=== PATIENT | male | born 1990 | race Caucasian/White ===

== ENCOUNTER 2017-02-22 18:16 | Emergency (ER) | payer MEDICAID, SELFPAY | END 2017-02-22 18:58 | disposition home or self-care (01) | PROVIDERS: Emergency Provider Nurse Practitioner Family; Family Provider Physician Assistant; Visit Provider Nurse Practitioner Family | DX: S93.402A Sprain of unspecified ligament of left ankle, initial encounter (principal); X50.1XXA Overexertion from prolonged static or awkward postures, initial encounter; Y92.89 Other specified places as the place of occurrence of the external cause; F17.210 Nicotine dependence, cigarettes, uncomplicated; Y93.67 Activity, basketball | CPT/HCPCS: 73610; 99201 ==

== ENCOUNTER 2020-02-27 03:42 | Emergency (ER) | payer OTHER, MEDICAID, SELFPAY ==
[2020-02-27 03:44] VITALS: BP 135/81; PULSE 96; RESP 16; TEMP 36.5; O2SAT 100; BMI 23.6
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
--- NOTE | 2020-02-27 04:18 | PC.NURSE ---
pt back from RAD
[2020-02-27 05:00] VITALS: BP 129/83; PULSE 89; RESP 16; TEMP 36.6; O2SAT 97
== END 2020-02-27 05:04 | disposition home or self-care (01) ==
PROVIDERS: Emergency Provider Emergency Medicine
DX: S00.83XA Contusion of other part of head, initial encounter (principal); S01.311A Laceration without foreign body of right ear, initial encounter; Y04.0XXA Assault by unarmed brawl or fight, initial encounter; Y92.9 Unspecified place or not applicable; E03.9 Hypothyroidism, unspecified; Z23 Encounter for immunization
CPT/HCPCS: 70450; 70486; 72125; 90715; 99282

== ENCOUNTER 2020-03-01 19:30 | Emergency (ER) | payer OTHER, SELFPAY ==
[2020-03-01 20:30] VITALS: BP 141/85; PULSE 83; RESP 19; TEMP 37; O2SAT 98; BMI 25.7
--- NOTE | 2020-03-01 20:44 | HMH.EDUTC ---
[facility] [place] Disposition Clinical Impression: Viral upper respiratory illness Disposition: Home, Self-Care Condition on Discharge: Good Instructions: Diarrhea, Nausea and Vomiting-Adult, DI for COVID-19 (Suspected or Confirmed ), Coronavirus Disease 2019, Preventing the Spread of Coronavirus Discharge Instructions Additional Instructions: *Monitor Temp, Over the counter Motrin or Tylenol as directed/as needed Tylenol every 4 hours and Motrin every 6 hours (as long as your family doctor has told you that you can take it) for fever or pain. and straight to ER if unable to lower temp less than 101.0 after medication given *Warm salt water gargles may help to soothe the throat *Throat Lozenges *Warm fluids like tea with honey may help to soothe the throat *Sleep elevated *Humidifier/Vaporizer Your throat swab was sent for culture. Those results are typically sent to your primary care. Be sure to follow up in 2-3 days with your family doctor/primary care physician if no improvement so they can review those result and treat if necessary. If you don?t have a primary care doctor, I recommend you get one but in the mean time, you will have to return to a walk in clinic Follow up IMMEDIATELY for new or worsening symptoms or no Noticeable improvement over the next 48-72 hours. 911 for difficulty breathing or swallowing You were tested for today for COVID19 your test result should be back in the next 24-48 hours, you may call to the [facility] to see if your test results are back in the next 48 hours [phone] [facility] hours are 9am-9pm You was given a handout with instructions for Self Quarantine and Self isolation for while you wait on test results and what to do if they are positive If you are positive the Health Dept will be contacting you also Prescriptions: Ondansetron [Zofran 4mg ODT] 4 mg PO TIDP PRN #6 tab PRN Reason: Vomiting Transmission Status: Received by [facility] Referrals: Bridgett Redman APRN [Primary Care Provider] - As needed Forms: Work/School Release Time of Disposition: 20:48 Medical Decision Making - Moncho Inquiry Pt receiving controlled substance: No Moncho was queried for this patient: No Vital Signs: 03/01/20 20:30 Temperature 98.6 F Temperature Source Oral Pulse Rate [Right Brachial] 83 Respiratory Rate 19 Blood Pressure [Right Arm] 141/85 H Blood Pressure Mean [Right Arm] 103 Blood Pressure Source [Right Arm] Automatic Cuff Blood Pressure Position [Right Arm] Sitting 02 Sat by Pulse Oximetry 98 Oxygen Delivery Method Room Air - Lab Data Lab results reviewed: Yes: I reviewed the patient's lab results. Lab Results 03/01/20 20:48: Strep Scn Rapid Clinic Negative Orders (Tests/Meds): ORDERS Category Date Time Status Covid-19 Nasal PCR ([facility]) Routine Lab 03/01/20 20:01 Ordered Strep Screen Confirmation Stat Micro 03/01/20 20:48 Received [facility] [place] HPI - General Stated complaint: Body aches, no taste or smell, fever Time Seen by Provider: 03/01/20 20:44 Mode of Arrival: Ambulatory Source of Information: Patient Limitations: No Limitations Description of Symptoms (Recalled from Triage Doc. by RN): PATIENT C/O FEVER, CHILLS, HEADACHE, SORE THROAT, LOSS OF TASTE AND SMELL, DIARRHEA, AND VOMITING X3 DAY HEENT Symptoms (Recalled from RN notes): No Resp Symptoms (Recalled from RN notes): No Skin Symptoms (Recalled from RN notes): No MS Symptoms (Recalled from RN notes): No Functional Status (Recalled from RN notes): WNL - History of Present Illness Provider Complaint: Patient states that he hasnt been feeling well for several days States that he has been having fever, chills,, body aches, sore throat N/V/D and loss of taste and smell State that he has not been around any one that he is aware of that has COVID but needed to get tested due to symptoms - Related Data Home Medications Medication Instructions Recorded Confirmed Levothyroxine Sodium 125 mcg PO DAILY 11/20
[2020-03-01 20:53] LABS: UTC Strep Screen (Rapid) Negative (Negative)
[2020-03-01 20:59] VITALS: BP 141/85; PULSE 83; RESP 19; TEMP 37; O2SAT 98
[2020-03-02 21:03] LABS: UTC Influenza A Antigen Negative (Negative); UTC Influenza B Antigen Negative (Negative)
== END 2020-03-01 21:00 | disposition home or self-care (01) ==
PROVIDERS: Emergency Provider Nurse Practitioner; PCP Nurse Practitioner Family
DX: Z20.822 Contact with and (suspected) exposure to COVID-19 (principal); J06.9 Acute upper respiratory infection, unspecified; E03.9 Hypothyroidism, unspecified; Z79.899 Other long term (current) drug therapy
CPT/HCPCS: 87804; 87880; 99202; G0463; U0003

== ENCOUNTER 2020-05-31 11:04 | Emergency (ER) | payer OTHER, SELFPAY ==
[2020-05-31 11:11] VITALS: BP 124/84; PULSE 90; RESP 16; TEMP 36.6; O2SAT 97; BMI 25.7
[2020-05-31 11:19] VITALS: BP 122/80; PULSE 89; RESP 14; TEMP 36.6
--- NOTE | 2020-05-31 11:23 | HMH.EDUTC ---
[facility] [place] Impression: Exposure to COVID-19 virus Disposition: Home, Self-Care Condition on Discharge: Good Instructions: Preventing the Spread of Coronavirus Discharge Instructions Additional Instructions: Drink plenty of fluids. Take tylenol for pain or fever. Return if you begin to have difficulty breathing. Follow up with your regular doctor. GO TO THE ER FOR ANY WORSENING SYMPTOMS Referrals: PCP,No [Primary Care Provider] - Time of Disposition: 11:25 Medical Decision Making - Medical Records Medical records reviewed: No: I reviewed the patient's medical records. - Moncho Inquiry Pt receiving controlled substance: No Vital Signs: 05/31/20 11:11 05/31/20 11:19 Temperature 98 F 98 F Temperature Source Oral Pulse Rate 89 Pulse Rate [Right] 90 Respiratory Rate 16 14 Blood Pressure 122/80 Blood Pressure [Right Arm] 124/84 Blood Pressure Mean [Right Arm] 97 Blood Pressure Source [Right Arm] Automatic Cuff Blood Pressure Position [Right Arm] Sitting 02 Sat by Pulse Oximetry 97 Oxygen Delivery Method Room Air [facility] [place] - General Stated complaint: cov test Time Seen by Provider: 05/31/20 11:23 Mode of Arrival: Ambulatory Source of Information: Patient Limitations: No Limitations Description of Symptoms (Recalled from Triage Doc. by RN): pt needs a covid test for work. no exposure or symptoms. HEENT Symptoms (Recalled from RN notes): No Resp Symptoms (Recalled from RN notes): No Skin Symptoms (Recalled from RN notes): No MS Symptoms (Recalled from RN notes): No Functional Status (Recalled from RN notes): na - History of Present Illness Provider Complaint: He is here for to get a covid test. He denies any symptoms. He was expsoed to covid about 5 days ago. - Related Data Home Medications Medication Instructions Recorded Confirmed Levothyroxine Sodium 125 mcg PO DAILY 11/20/17 03/01/20 [Levothyroxine 125mcg (0.125mg) Tab] Previous Rx's Medication Instructions Recorded Ondansetron [Zofran 4mg ODT] 4 mg PO TIDP PRN #6 tab 03/01/20 Allergies Allergy/AdvReac Type Severity Reaction Status Date / Time No Known Allergies Allergy Verified 05/31/20 11:19 - Worker's Comp Is this a Worker's Comp case?: No [facility] History - Hepatitis A Screen Drug use history?: No High risk sexual behaviors?: No History of sexually transmitted infection?: No Currently employed?: No Childcare worker?: No Do you have indoor plumbing?: Yes Do you have electricity?: Yes Attestation statement:: This patient has been screened for Hepatitis A risk factors. I have reviewed the patient's past medical history: Yes Other Medical History: Reports: Hypothyroidism Other Surgeries: Yes: No Previous Surgery - Social History Alcohol Intake: never Occupational Status: other ROS Obtained: Yes All systems reviewed & no additional complaints - Constitutional Constitutional: Reports system reviewed and no additional complaints, except as docu - Eyes Eyes: Reports system reviewed and no additional complaints, except as docu - ENT Ears, Nose, Mouth, and Throat: Reports system reviewed and no additional complaints, except as docu - Cardiovascular Cardiovascular: Reports system reviewed and no additional complaints, except as docu - Respiratory Respiratory: Reports system reviewed and no additional complaints, except as docu - Gastrointestinal Gastrointestingal: Reports: system reviewed and no additional complaints, except as docu Physical Exam - General General appearance: alert, in no apparent distress - Head Head exam: atraumatic, normocephalic, normal inspection - Eye Eye exam: Present: normal appearance, PERRL, EOMI - ENT ENT exam: Present: normal exam, normal oropharynx, mucous membranes moist, TM's normal bilaterally, normal external ear exam - Neck Neck exam: Present: normal inspection, full ROM, trachea midline. Absent: mening
== END 2020-05-31 11:29 | disposition home or self-care (01) ==
PROVIDERS: Emergency Provider Nurse Practitioner Family
DX: Z20.822 Contact with and (suspected) exposure to COVID-19 (principal)
CPT/HCPCS: 99202; G0463; U0003

== ENCOUNTER 2021-05-19 19:34 | Emergency (ER) | payer SELFPAY ==
[2021-05-19 21:10] VITALS: BP 133/90; PULSE 104; RESP 20; TEMP 37.6; O2SAT 98; BMI 25.9
[2021-05-19 21:41] LABS: UTC Influenza A Antigen Positive (Negative)
[2021-05-19 21:42] LABS: UTC Influenza B Antigen Negative (Negative)
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
[2021-05-19 21:46] VITALS: BP 133/90; PULSE 104; RESP 20; TEMP 37.6; O2SAT 98
== END 2021-05-19 21:50 | disposition home or self-care (01) ==
PROVIDERS: Emergency Provider Nurse Practitioner
DX: J10.1 Influenza due to other identified influenza virus with other respiratory manifestations (principal); E03.9 Hypothyroidism, unspecified
CPT/HCPCS: 87804; 99213; G0463

== ENCOUNTER → 2022-11-23 07:30 | Outpatient (CLI) | payer BC, SELFPAY ==
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
== END ==
LOC: RAD 07:30
PROVIDERS: Visit Provider Nurse Practitioner Family
DX: R51.9 Headache, unspecified (principal)
CPT/HCPCS: 70450

== ENCOUNTER 2023-09-07 11:22 | Outpatient (CLI) | payer BC, SELFPAY ==
[2023-09-07 16:18] LABS: Basophils # 0.1 K/mm3 (0-0.2); Basophils % 0.8 % (0.1-2.0); Eosinophils # 0.2 K/mm3 (0.0-0.4); Eosinophils % 1.7 % (0.1-12.0); Hematocrit 50.7 % (42.0-52.0); Hemoglobin 17.5 g/dL (14.1-18.0); Lymphocytes % 18.1 % (10-50); Mean Corpuscular HGB Conc 34.5 g/dL (31.8-35.4); Mean Corpuscular Hemoglobin 33.1 pg (27.0-31.2); Mean Corpuscular Volume 95.9 fl (80-94); Mean Platelet Volume 8.7 fl (7.4-10.4); Monocytes # 1.1 K/mm3 (0.1-1.0); Monocytes % 9.8 % (1.7-9.3); Neutrophils # 7.8 K/mm3 (1.8-7.8); Neutrophils % 69.5 % (37.0-80.0); Platelet Count 242 K/mm3 (142-424); Red Blood Count 5.29 M/mm3 (4.60-6.20); Red Cell Distribution Width 13.8 % (11.5-17.5); White Blood Count 11.2 K/mm3 (4.8-10.8)
[2023-09-07 16:47] LABS: Chloride 100 mmol/L (98-107)
[2023-09-07 16:48] LABS: Potassium 4.7 mmoL/L (3.5-5.1); Sodium 137 mmol/L (136-145)
[2023-09-07 16:50] LABS: Alanine Aminotransferase 37 U/L (12-78); Aspartate Amino Transferase 41 U/L (17-59); Blood Urea Nitrogen 7 mg/dl (9-20); Estimated Glomerular Filt Rate 113 ml/min (>60); GFR (African American) 136 ML/MIN (>60)
[2023-09-07 16:51] LABS: Albumin Level 5.2 g/dl (3.5-5.0); Albumin/Globulin Ratio 1.6 (1.1-1.8); Alkaline Phosphatase 95 U/L (38-126); Anion Gap 12.7 mEq/L (5-15); Bilirubin,Total 0.9 mg/dl (0.2-1.3); Calcium 9.8 mg/dl (8.4-10.2); Carbon Dioxide 29 mmol/L (22.0-30.0); Chol/HDL Ratio 4.4 (1-3.5); Cholesterol 264 mg/dl (140-200); Globulin 3.3 g/dL (1.3-3.2); Glucose 88 mg/dl (74-100); HDL Cholesterol 60 mg/dl (40-60); Total Protein,Serum 8.5 g/dl (6.3-8.2)
[2023-09-07 17:03] LABS: Direct LDL Cholesterol 143.89 mg/dL (100-129)
[2023-09-07 17:08] LABS: Triiodothryronine (T3) Uptake 35 % (23.5-40.5)
[2023-09-07 17:09] LABS: Free Thyroxine Index 1.9 ug/dL (5.93-13.13); T4 (Thyroxine) 5.5 ug/dl (5.53-11.0)
[2023-09-07 17:16] LABS: Triglycerides 481 mg/dl (30-150)
== END 2023-09-07 23:59 | disposition home or self-care (01) ==
LOC: LAB.DROPOF 09-10 11:25
PROVIDERS: PCP Nurse Practitioner Family; Visit Provider Nurse Practitioner Family
DX: F41.1 Generalized anxiety disorder (principal); E03.9 Hypothyroidism, unspecified
CPT/HCPCS: 80050; 80053; 80061; 84436; 84443; 84479; 85025